=== PATIENT | female | born 1960 | race Two or more races ===

== ENCOUNTER 2018-12-25 13:00 | Outpatient (CLI) | payer OTHER | END 2018-12-25 13:13 | disposition home or self-care (01) | LOC: MAMO-SONO 13:00 | DX: Z12.31 Encounter for screening mammogram for malignant neoplasm of breast (principal); N61.0 Mastitis without abscess ==

== ENCOUNTER 2019-01-02 11:27 | Emergency (ER) | payer OTHER ==
[~2019-01-02] VITALS: Ht 167.6 cm; Wt 68.0 kg
[2019-01-02] MEDS ORDERED: SIMVASTATIN20 MG PO (11:35)
[2019-01-02] MEDS ORDERED: METFORMIN HCL850 MG PO (11:35)
== END 2019-01-02 16:43 | disposition home or self-care (01) ==
LOC: ER 11:27
DX: S80.01XA Contusion of right knee, initial encounter (principal); W23.0XXA Caught, crushed, jammed, or pinched between moving objects, initial encounter; Y93.89 Activity, other specified; Y92.89 Other specified places as the place of occurrence of the external cause; Y99.8 Other external cause status

== ENCOUNTER 2019-01-22 13:17 | Outpatient (CLI) | payer OTHER ==
[~2019-01-22 13:17] MED LIST: METFORMIN HCL850 MG PO; SIMVASTATIN20 MG PO
== END 2019-01-22 13:33 | disposition home or self-care (01) ==
LOC: RAD 501 13:17
DX: M17.0 Bilateral primary osteoarthritis of knee (principal)

== ENCOUNTER 2019-06-04 13:43 | Outpatient (CLI) | payer OTHER | END 2019-06-04 13:44 | disposition home or self-care (01) | LOC: NUCLEAR 13:43 | DX: M81.0 Age-related osteoporosis without current pathological fracture (principal) ==

== ENCOUNTER → 2020-01-20 | Outpatient (CLI) | payer OTHER | END | disposition home or self-care (01) | LOC: MAMO-SONO 11:15 | DX: Z12.31 Encounter for screening mammogram for malignant neoplasm of breast (principal); N60.11 Diffuse cystic mastopathy of right breast; N60.12 Diffuse cystic mastopathy of left breast ==

== ENCOUNTER → 2020-10-13 | Outpatient (CLI) | payer OTHER | END | disposition home or self-care (01) | LOC: OFIC 805 11:02 | PROVIDERS: ATTEND Otolaryngology | DX: R42 Dizziness and giddiness (principal); H61.21 Impacted cerumen, right ear ==

== ENCOUNTER 2020-11-09 11:39 | Outpatient (CLI) | payer OTHER | END 2020-11-09 12:10 | disposition home or self-care (01) | LOC: OFIC 805 11:39 | PROVIDERS: ATTEND Otolaryngology | DX: L29.8 Other pruritus (principal); R42 Dizziness and giddiness ==

== ENCOUNTER 2021-08-04 09:31 | Outpatient (CLI) | payer OTHER | END 2021-08-04 09:43 | disposition home or self-care (01) | LOC: MAMO-SONO 09:31 | PROVIDERS: ATTEND Specialist | DX: R92.1 Mammographic calcification found on diagnostic imaging of breast (principal); Z12.31 Encounter for screening mammogram for malignant neoplasm of breast; N60.11 Diffuse cystic mastopathy of right breast; N60.12 Diffuse cystic mastopathy of left breast ==

== ENCOUNTER 2021-08-24 10:48 | Outpatient (CLI) | payer OTHER | END 2021-08-24 11:01 | disposition home or self-care (01) | LOC: RAD 10:48 | PROVIDERS: ATTEND Physical Medicine & Rehabilitation | DX: M17.0 Bilateral primary osteoarthritis of knee (principal) ==

== ENCOUNTER 2021-10-25 00:08 | Outpatient (CLI) | payer OTHER | END 2021-10-25 08:30 | disposition home or self-care (01) | LOC: PPH VACUNA 00:08 | PROVIDERS: ATTEND Emergency Medicine Pediatric Emergency Medicine | DX: Z23 Encounter for immunization (principal) ==

== ENCOUNTER 2023-04-04 13:16 | Outpatient (CLI) | payer OTHER | END 2023-04-04 14:05 | disposition home or self-care (01) | LOC: RAD 13:16 | PROVIDERS: ATTEND Physical Medicine & Rehabilitation | DX: M17.0 Bilateral primary osteoarthritis of knee (principal) ==

== ENCOUNTER → 2023-09-21 | Outpatient (CLI) | payer OTHER | END | disposition home or self-care (01) | LOC: EDBD 11:19 → MAMO-SONO 11:19 | PROVIDERS: ATTEND Specialist | DX: N60.11 Diffuse cystic mastopathy of right breast (principal); N60.12 Diffuse cystic mastopathy of left breast; Z12.31 Encounter for screening mammogram for malignant neoplasm of breast ==

== ENCOUNTER 2024-01-10 14:02 | Outpatient (CLI) | payer OTHER | END 2024-01-10 14:09 | disposition home or self-care (01) | LOC: RAD 14:02 | PROVIDERS: ATTEND Specialist | DX: J45.991 Cough variant asthma (principal) ==

== ENCOUNTER 2024-06-05 15:52 | Outpatient (CLI) | payer OTHER | END 2024-06-05 16:00 | disposition home or self-care (01) | LOC: RAD 15:52 | PROVIDERS: ATTEND Physical Medicine & Rehabilitation | DX: M17.11 Unilateral primary osteoarthritis, right knee (principal); M17.12 Unilateral primary osteoarthritis, left knee ==

== ENCOUNTER 2024-06-09 13:02 | Outpatient (CLI) | payer OTHER | END 2024-06-09 13:04 | disposition home or self-care (01) | LOC: NUCLEAR 13:02 | PROVIDERS: ATTEND Physical Medicine & Rehabilitation | DX: M81.0 Age-related osteoporosis without current pathological fracture (principal) ==

== ENCOUNTER 2024-07-09 12:36 | Outpatient (CLI) | payer OTHER | END 2024-07-09 12:45 | disposition home or self-care (01) | LOC: RAD 12:36 | PROVIDERS: ATTEND Physical Medicine & Rehabilitation | DX: M54.2 Cervicalgia (principal) ==

== ENCOUNTER 2024-11-27 13:37 | Outpatient (CLI) | payer OTHER | END 2024-11-27 13:46 | disposition home or self-care (01) | LOC: MAMO-SONO 13:37 | PROVIDERS: ATTEND Specialist | DX: N60.11 Diffuse cystic mastopathy of right breast (principal); N60.12 Diffuse cystic mastopathy of left breast ==

== ENCOUNTER 2024-12-03 12:47 | Outpatient (CLI) | payer OTHER | END 2024-12-03 12:58 | disposition home or self-care (01) | LOC: SONOGRAMA 12:47 | PROVIDERS: ATTEND Specialist | DX: N20.0 Calculus of kidney (principal); N20.9 Urinary calculus, unspecified ==

== ENCOUNTER 2025-07-08 10:17 | Outpatient (CLI) | payer OTHER | END 2025-07-08 10:19 | disposition home or self-care (01) | LOC: TOM 10:17 | PROVIDERS: ATTEND Otolaryngology | DX: J32.0 Chronic maxillary sinusitis (principal); J34.3 Hypertrophy of nasal turbinates; J34.2 Deviated nasal septum ==

== ENCOUNTER 2025-08-13 10:11 | Outpatient (CLI) | payer OTHER | END 2025-08-13 10:13 | disposition home or self-care (01) | LOC: SONOGRAMA 10:11 | PROVIDERS: ATTEND Specialist | DX: K75.81 Nonalcoholic steatohepatitis (NASH) (principal) ==